=== PATIENT | female | born 1965 | race Caucasian/White ===

== ENCOUNTER 2020-06-06 06:25 | Day surgery (SDC) | payer OTHER ==
[2020-06-06] MEDS ORDERED: Sodium Chloride 0.9% 1,000 ML IV SCH (07:00)
[2020-06-06] MEDS ORDERED: Propofol 200 MG/20 ML SDV ONE (07:29)
[2020-06-06] MEDS ORDERED: Midazolam 1 MG/ML 2 ML SDV ONE (07:29)
[2020-06-06] MEDS ORDERED: fentaNYL 100 MCG/2 ML SDV ONE (07:29)
--- NOTE | 2020-06-06 11:30 | OR ---
DATE OF PROCEDURE: 06/06/2020 SURGEON: Mustapha Angeles MD PROCEDURE: Colonoscopy. FINDINGS: 1. Descending colon polyp #1, approximately 5 mm, completely removed using hot snare wire device. 2. Descending colon polyp #2, approximately 5 mm, completely removed using cold biopsy forceps. COMPLICATION: None. HOTBED OPERATOR: None. ANESTHESIA: MAC. PREOPERATIVE DIAGNOSIS: Screening colonoscopy. POSTOPERATIVE DIAGNOSIS: Screening colonoscopy. RISKS: Risks, benefits, alternatives, and limitations including, but not limited to infection, bleeding, perforation, false positives and false negatives were explained to the patient, who wished to proceed. PROCEDURE IN DETAIL: The patient was placed in left lateral decubitus position. Digital rectal exam was performed without abnormality. Scope was introduced and advanced atraumatically to the ileocecal valve. A photo was taken of this. Scope was brought back through the ascending, transverse, descending colon, and retroflexed. No evidence of old or new blood. No masses. No diverticulosis. Polyps were completely removed. No colitis. No abnormalities on retroflexion. Greater than 10 minutes was spent removing the scope. Mustapha Angeles MD /[id number]
== END 2020-06-06 09:48 | disposition home or self-care (01) ==
LOC: JP.SDS 06:25
PROVIDERS: ATTEND Surgery
DX: Z12.11 Encounter for screening for malignant neoplasm of colon (principal); D12.4 Benign neoplasm of descending colon; K21.9 Gastro-esophageal reflux disease without esophagitis; Z88.0 Allergy status to penicillin
CPT/HCPCS: 45380; 45385; 88305; J2250; J2704; J3010; J7030